=== PATIENT | female | born 1995 | race Caucasian/White ===

== ENCOUNTER 2018-12-29 13:04 | Inpatient (IN) ==
[2018-12-29] MEDS ORDERED: NS 1,000 ML IV ONE ×2 (14:00→16:46)
[2018-12-29] MEDS ORDERED: ZOFRAN IV ONE (14:00)
[2018-12-29 14:14] LABS: BASO# 0.01 X1000 (0.0-0.2); BASO% 0.1 % (0.0-0.8); EOS# 0.15 X1000 (0.0-0.7); EOS% 0.9 % (0.0-10.0); HEMATOCRIT 39.8 % (37.0-47.0); HEMOGLOBIN 13.8 g/dL (12.0-16.0); LYMPH# 1.37 X1000 (1.2-3.4); LYMPH% 7.9 % (20.5-51.1); MCH 31.2 PG (27-31); MCHC 34.7 g/dL (33-37); MCV 89.8 FL (81-99); MONO% 3.5 % (1.7-9.3); MPV 10.2 FL (7.4-10.4); NEUT# 15.21 X1000 (1.4-6.5); NEUT% 87.6 % (42.2-75.2); PLT 184 X1000 (130-400); RBC 4.43 XMIL (4.2-5.4); RDW 12.5 % (11.5-14.5); WBC 17.34 X1000 (4.8-10.8)
[2018-12-29] MEDS ORDERED: ZOSYN 3.375 GM in NS 50 ML IV ONE ×2 (14:15→16:46)
[2018-12-29 14:26] LABS: URINE SOURCE CLEAN CATCH
[2018-12-29 14:27] LABS: BANDS 4 % (0-1); EOS 2 % (1-10); LYMPHS 4 % (21-51); MONO 4 % (1-9); SEGS 86 % (42-75)
[2018-12-29 14:29] LABS: BILIRUBIN URINE NEGATIVE (NEGATIVE); BLOOD URINE MODERATE (NEGATIVE); COLOR YELLOW; GLUCOSE URINE NEGATIVE (NEGATIVE); KETONE URINE 60 mg/dL (NEGATIVE); LEUKOCYTES URINE SMALL (NEGATIVE); NITRITE URINE NEGATIVE (NEGATIVE); PH URINE 5.5; PROTEIN URINE 100 mg/dL (NEGATIVE); SP GRAVITY URINE 1.026; TURBIDITY URINE HAZY (CLEAR); UROBILINOGEN URINE NORMAL (NORMAL)
--- NOTE | 2018-12-29 14:29 | PROVIDER DOCUMENTATION ---
HPI-Abdominal Pain/GI Problem - General Chief Complaint: Abdominal Pain Stated Complaint: ABDOMINAL PAIN/ VOMITING Time Seen by Provider: 12/29/18 13:39 Source: patient Allergies/Adverse Reactions: Patient Allergies Allergy/AdvReac Type Severity Reaction Status Date / Time No Known Allergies Allergy Unverified 09/23/15 23:30 Home Medications: Home Medication List Medication Instructions Recorded Confirmed Last Taken Type NK [No Home Medications] 12/29/18 12/29/18 Unknown History - History of Present Illness-ABD Nature of Presenting Problems: 23yof present to ER with c/o RLQ abd pain onset 2 days ago. Pt was seen at an [facility]gent [facility] and referred here due to WBC 20. Pt reports fever of 101 yesterday. Pt also c/o nvd. Abdominal Pain Onset Location: reports: generalized abdomen Pain Radiation: reports: no radiation Quality of Pain: reports: sharp, stabbing Onset/Duration: reports: 2 days ago Timing: reports: still present Associated Symptoms: reports: diarrhea, fever/chills, nausea, vomiting. denies: chest pain, constipation, diaphoresis, genitourinary problems, shortness of breath Review of Systems - Adult - REVIEW OF SYSTEMS - ADULT Constitutional: reports: see HPI, chills, fever Eyes: reports: no symptoms reported Ears, Nose, Mouth & Throat: reports: no symptoms reported Cardiovascular: reports: no symptoms reported. denies: chest pain Respiratory: reports: no symptoms reported. denies: shortness of breath Gastrointestinal: reports: see HPI, abdominal pain, diarrhea, nausea, vomiting Genitourinary: reports: no symptoms reported. denies: dysuria, frequency, hematuria, urgency Musculoskeletal: reports: no symptoms reported. denies: back pain Integumentary: reports: no symptoms reported Neurological: reports: no symptoms reported. denies: dizziness/vertigo Psychiatric: reports: no symptoms reported Endocrine: reports: no symptoms reported Hematologic/Lymphatic: reports: no symptoms reported Allergic/Immunologic: reports: no symptoms reported All Other Systems: Reviewed and Negative Past History - Adult - PAST MEDICAL HISTORY-ADULT Review of Records: reports: Old Records Reviewed, Nursing Assessment Review, Medications Reviewed, Social history reviewed & non-contributory. Major Childhood Illnesses: reports: denies history Cardiovascular: reports: HTN (during ) Respiratory: reports: denies history Gastrointestinal: reports: denies history Obstetrical/Gynecological: reports: denies history Genitourinary: reports: denies history Musculoskeletal: reports: denies history Neurological: reports: denies history Endocrine/Immune: reports: denies history Other Conditions: reports: denies history - IMMUNIZATION STATUS Childhood Immunizations: See Nurse Assessment Flu Vaccine: See Nurse Assessment - FAMILY HISTORY Family History: reviewed, not pertinent Physical Exam-General - PHYSICAL EXAM-ADULT Initial Vital Signs Reviewed: Yes - CONSTITUTIONAL General Appearance: alert, mild distress - EYES Eyes: pink conjunctivae - HEAD, EARS, NOSE, MOUTH & THROAT HENMT: moist mucous membranes, normal ENT inspection. negative: angioedema - NECK Neck: full range of motion, supple, normal inspection. negative: lymphadenopathy - RESPIRATORY Respiratory: lungs clear, normal breath sounds, no respiratory distress, no accessory muscle use - CARDIOVASCULAR Cardiovascular: tachycardia - GASTROINTESTINAL (ABDOMEN) Abdominal Exam: normal bowel sounds, guarding, tenderness (diffuse). negative: distended, rigid, rebound - LYMPHATIC Lymphatic: no adenopathy - MUSCULOSKELETAL Back Exam: normal inspection, no CVA tenderness, no vertebral tenderness Extremity: normal range of motion, normal gait, normal inspection - SKIN Integumentary: normal color, warm/dry. negative: rash - NEUROLOGIC Neurologic: grossly normal, no motor/sensory deficits - PSYCHIATRIC Psych/Mental Status: normal mood/affect, normal thought content, normal thought process, oriented x 3 Progress - PLAN OF CARE/RESULTS Progress/Plan/Lab Results: Vital Signs - 8 hr 12/29/18 13:32 Temperature 99.7 F H Pulse Rate 124 H Respiratory Rate 20 Blood Pressure 130/79 O2 Sat by Pulse Oximetry 98 Laboratory Results - last 24 hr 12/29/18 13:49 WBC 17.34 H RBC 4.43 Hgb 13.8 Hct 39.8 MCV 89.8 MCH 31.2 H MCHC 34.7 RDW Std Deviation 12.5 Plt Count 184 MPV 10.2 Neut % (Auto) 87.6 H Lymph % (Auto) 7.9 L Bertie % (Auto) 3.5 Eos % (Auto) 0.9 Baso % (Auto) 0.1 Neut # (Auto) 15.21 H Lymph # (Auto) 1.37 Bertie # (Auto) 0.60 H Eos # (Auto) 0.15 Baso # (Auto) 0.01 Orders Category Date Time Status ED: Urine Bedside ORDERED Care 12/29/18 13:36 Active ED: Urine Bedside ORDERED Care 12/29/18 13:40 Active NPO Diet 12/29/18 13:36 Completed NPO Diet 12/29/18 13:[address] ABD/PELVIS W/IV CONT ONLY [CT] Stat Exams 12/29/18 13:40 Ordered BLOOD CULTURE [BLDCUL] Stat Lab 12/29/18 14:15 Uncollected CBC WITH DIFF [HEME] Stat Lab 12/29/18 13:49 Results COMPREHENSIVE METABOLIC PANEL [CHEM] Stat Lab 12/29/18 13:49 Received LACTATE, PLASMA [CHEM] Stat Lab 12/29/18 14:15 Uncollected LIPASE [CHEM] Stat Lab 12/29/18 13:49 Received URINALYSIS W/POSS RFLX CULT [URINALYSIS] Stat Lab 12/29/18 14:22 Ordered 0.9% Sodium Chloride Inj [Ns] 1,000 ml Med 12/29/18 14:00 Active IV 999 mls/hr Ondansetron [Zofran] Med 12/29/18 14:00 Discontinued 4 mg IV NOW ONE Piperacillin/Tazobactam [Zosyn] 3.375 gm Med 12/29/18 14:15 Active 0.9% Sodium Chloride Inj [Ns] 50 ml IV NOW Abd Pain/OB <20 weeks Stat Oth 12/29/18 13:35 Ordered Result Diagrams: 12/29/18 13:49 12/29/18 13:49 - REASSESSMENT Reassessment #1 Time Reassessed: 16:56 (Dr Duarte assessed pt in ER. Plans to take pt to surgery. Pt to remain NPO) - CT/MRI 1 CT Study: Abdomen, Pelvis Impression: See EMR Report ( FINDINGS: No calcified gallstones or adjacent inflammation. There is mild fatty infiltration of the liver. Normal spleen, pancreas, adrenal glands, and kidneys. No hydronephrosis. Normal aorta. Mild lower abdominal and right lower quadrant mesenteric inflammation. Trace fluid in the right paracolic gutter. The appendix measures 7 mm in diameter. The mesenteric inflammation and fluid is separate from the appendix. No abscess. No free air. Urinary bladder is only mildly distended. There are small bilateral ovarian cysts. Normal uterus. IMPRESSION: Nonspecific lower abdominal and right lower quadrant mesenteric inflammation with a small amount of free fluid that appears to be separate from the appendix. This exam was performed using automated exposure control, adjustment of mA or kV according to patient size, and/or use of iterative reconstruction technique. Electronically signed by Josh David 12/29/2018 3:47 PM) - CONSULTS/PCP/HOSPITALIST Notification #1 *Consult/PCP/Hospitalist*: Dr Duarte Time Discussed: 16:20 (discussed CT report and pt's elevated WBC, fever, and RLQ abd tenderness. States he will come examine pt. Requests pt be placed in room with stretcher. Charge nurse made aware.) Consult Disposition: Will see in ED Departure - Departure Date of Disposition Decision: 12/29/18 Time of Disposition Decision: 16:57 DIAGNOSIS: Appendicitis Qualifiers: Appendicitis type: acute appendicitis Acute appendicitis type: unspecified acute appendicitis type Qualified Code(s): K35.80 - Unspecified acute appendicitis Disposition: ADMITTED INPATIENT 09 Certified Medical Emergency: Emergent Condition: Fair Referrals and Follow-Ups: None,PCP [Primary Care Provider] - - Critical Care Note This patient required my direct & personal management of CC.: No Attestation - Physician/ DL Attestation Patient care was provided by Advanced Practice Provider:: Yes Advanced Practice Provider:: Nehal Jimenez Advanced Practice Provider documentation review:: The Mid-level provider documentation, treatment plan and medical decision making was reviewed by the physician who agrees with all treatment and medical decision making by the MLP. The physician spent face to face time with patient:: No Advanced Practice Provider documentation review:: Supervising physician onsite and consulted in the evaluation and care of this patient. The physician did not have a face to face encounter with the patient.
[2018-12-29 14:34] LABS: AGAP 17; ALB/GLOB RATIO 0.8; ALBUMIN 3.9 g/dL (3.5-5.0); ALKALINE PHOSPHATASE 120 U/L (32-104); BUN 12 mg/dL (8-22); CALCIUM 9.7 mg/dL (8.8-10.2); CHLORIDE 96 mmol/L (98-107); COSMO 271; ESTIMATED GFR > 60; GLUCOSE 114 mg/dL (70-104); GOT 16 U/L (10-30); GPT 16 U/L (10-36); LIPASE 12 U/L (13-60); POTASSIUM 3.3 mmol/L (3.5-5.1); SODIUM 135 mmol/L (136-145); TCO2 22 mmol/L (25-35); TOTAL BILIRUBIN 0.48 mg/dL (0.20-1.00); TOTAL PROTEIN 8.6 g/dL (6.3-8.3)
[2018-12-29 14:59] LABS: UR EPITHELIAL CELLS >10 /HPF (<10); URINE BACTERIA 1+ /HPF; URINE RBC <10 /HPF (<10); URINE WBC 20-40 /HPF (<10)
[2018-12-29 15:33] LABS: URINE CRYSTALS NONE SEEN
--- NOTE | 2018-12-29 15:49 | Diag Imaging Result Doc PS360 ---
EXAM: CT ABD/PELVIS W/IV CONT ONLY HISTORY: RLQ abd pain, appendicitis TECHNIQUE: CT abdomen and pelvis with intravenous contrast. The exam is compromised without oral contrast. COMPARISON: None. FINDINGS: No calcified gallstones or adjacent inflammation. There is mild fatty infiltration of the liver. Normal spleen, pancreas, adrenal glands, and kidneys. No hydronephrosis. Normal aorta. Mild lower abdominal and right lower quadrant mesenteric inflammation. Trace fluid in the right paracolic gutter. The appendix measures 7 mm in diameter. The mesenteric inflammation and fluid is separate from the appendix. No abscess. No free air. Urinary bladder is only mildly distended. There are small bilateral ovarian cysts. Normal uterus. IMPRESSION: Nonspecific lower abdominal and right lower quadrant mesenteric inflammation with a small amount of free fluid that appears to be separate from the appendix. This exam was performed using automated exposure control, adjustment of mA or kV according to patient size, and/or use of iterative reconstruction technique. Electronically signed by Josh David 12/29/2018 3:47 PM
[2018-12-29] MEDS ORDERED: MORPHINE IV ONE (16:46)
[2018-12-29] MEDS ORDERED: PHENERGAN IV PRN (17:06)
[2018-12-29] MEDS ORDERED: SODIUM CHLORIDE 0.9% INJ PRN (17:15)
[2018-12-29] MEDS: MORPHINE IV PRN (17:34)
[2018-12-29] MEDS ORDERED: SENSORCAINE 0.25%/EPI 1:200,000 ONE (19:37)
[2018-12-29] MEDS ORDERED: LR 1,000 ML ONE (19:37)
--- NOTE | 2018-12-29 19:38 | HISTORY AND PHYSICAL ---
HISTORY OF PRESENT ILLNESS: Ms. Maria Teresa Weeks is a 23-year-old white female who presented to our emergency department with a 4 to 5 day history of abdominal pain which was localized to her lower abdomen, mostly right lower quadrant. She has had some nausea and also diarrhea. She presented to the emergency department because of these ongoing symptoms. PAST MEDICAL HISTORY: She has 2 children. Otherwise is healthy. PAST SURGICAL HISTORY: No previous surgery. MEDICATIONS: None. ALLERGIES: None. SOCIAL HISTORY: She is a smoker but had not smoked over the last several days. REVIEW OF SYSTEMS: A 14-point review of systems was performed and was, essentially negative except for the history of present illness. PHYSICAL EXAMINATION: On exam, Ms. Maria Teresa Weeks is in no acute distress. She does have lower abdominal pain. I think it is most tender in her right lower quadrant. She has no previous scar. No hernia. There is no palpable mass. She did not have costovertebral tenderness. Rectal and vaginal exams were not performed. She does have palpable peripheral pulses. No peripheral edema. Neurologically she is alert and oriented x3 and appropriate. IMAGING: I reviewed the CT scan with our radiologist, Dr. Josh David. She does have some inflammation in her mid abdomen, but we were not sure if there was inflammation involving the appendix. The appendix was slightly enlarged. We felt this could be enteritis instead of appendicitis. She does have some ovarian cysts, but no significant free fluid in the pelvis. Her white blood cell count is elevated. IMPRESSION: 1. Inflammation and pain with elevated white blood cell count, lower abdomen localizing to her right lower quadrant. 2. Possible enteritis. 3. Possible appendicitis. PLAN: We will admit her to the hospital. Give her IV fluids and IV Zosyn. I discussed taking her appendix out and its risks including bleeding, infection, injury to intra-abdominal contents for trocar placement, conversion of laparoscopic to open appendectomy, removal of a normal appendix, possible ruptured appendix requiring prolonged hospitalization and drains. I have an emergent surgery to do right now and I will re-evaluate her as she gets settled in the emergency department for laparoscopic appendectomy. cc: Terese Duarte MD
[2018-12-29] MEDS ORDERED: HURRICAINE SPRAY (DOSE) ONE (19:41)
[2018-12-29] MEDS ORDERED: DIPRIVAN 1% ONE (19:46)
[2018-12-29] MEDS ORDERED: ROBINUL ONE (19:46)
[2018-12-29] MEDS ORDERED: XYLOCAINE-MPF 2% ONE ×2 (19:46→21:00)
[2018-12-29] MEDS ORDERED: FENTANYL ONE (19:47)
[2018-12-29] MEDS ORDERED: ZEMURON ONE (19:49)
[2018-12-29] MEDS ORDERED: QUELICIN (DOSE) ONE (19:49)
[2018-12-29] MEDS ORDERED: DILAUDID ONE (20:12)
[2018-12-29] MEDS ORDERED: ZOFRAN ONE (20:16)
[2018-12-29] MEDS ORDERED: DECADRON ONE (20:16)
[2018-12-29] MEDS ORDERED: TORADOL ONE (20:16)
[2018-12-29] MEDS: ZOSYN 3.375 GM in NS 50 ML IV SCH (20:50)
--- NOTE | 2018-12-29 21:19 | OPERATIVE NOTE ---
PROCEDURE DATE: 12/29/2018 PREOPERATIVE DIAGNOSIS: Acute appendicitis. POSTOPERATIVE DIAGNOSIS: 1. Acute appendicitis. 2. Enteritis. PRINCIPAL PROCEDURE: Laparoscopic appendectomy. SURGEON: Terese Duarte MD. SALES DEVELOPMENT REPRESENTATIVE: walker Perryfinancial services technician. ANESTHESIA: General in addition to local anesthetic. ESTIMATED BLOOD LOSS: 50 mL. DRAINS: None. INDICATIONS: Maria Teresa Weeks is a 23-year-old, overweight white female who presented to our emergency department with a several day history of abdominal pain, which was localized really to her right lower quadrant. A CT scan was performed which showed inflammation in the area of the right lower quadrant. It was questionable whether she had acute appendicitis or enteritis. We decided on proceeding with appendectomy. FINDINGS: She had exudate involving her distal small bowel and the bowel within the pelvis, and the loops of bowel were adhered to each other because of this exudate, and the omentum was stuck to the surface of the small bowel. We looked to the appendix. It could be acutely inflamed secondary to enteritis, but it was not ruptured, and we removed it laparoscopically. We took time to thoroughly irrigate out the lower abdomen. There was no inflammation in the upper abdomen. We tried to remove most of the exudate using suction and we irrigated the area well. We felt that we will continue her on IV antibiotics. The etiology of her exudate or infection and elevated white blood cell count was still in question after surgery. PROCEDURE: The patient was brought to the operating room, placed supine, received general anesthesia, and was intubated. A Malagon catheter tube was placed. Her abdomen was prepped and draped into a sterile field. She had previous two C-sections. We began the procedure by making a small curvilinear incision below the umbilicus using a 15 blade scalpel. Veress needle was introduced through this incision into the abdomen. Pneumoperitoneum was established. The Veress needle was removed and we used step trocars. I placed an 11 mm step trocar through this incision into the abdomen. The camera was placed through this port, and the abdomen was explored for injury; there was none. The liver appeared to be normal. I placed a 12 mm step trocar under direct vision in the suprapubic area through the previous scar, midline, and then I placed a 5 mm step trocar in the right lower quadrant of the abdomen. The camera was at the umbilicus and I used a grasper and a dissector to dissect out the appendix. I used a gold load Endo-ALICIA to come across the appendiceal mesentery. I used a reload of this ALICIA to come across the base of the appendix, and I removed the appendix using an Endobag through our 12 mm port site. I placed the trocar back through this site and I took time to dissect all the interloop adhesions, and tried to suck out as much exudate as possible off this lower abdominal bowel. I removed some fluid from the pelvis. The uterus appeared to be normal. The right ovary appeared to be normal. There was not any obvious salpingitis, tubo-ovarian abscess, or other infection in the pelvis. We felt this could be related to an enteritis. She had some diarrhea preop. At this point, after we were happy with the irrigation and it was removed with suction, we removed all trocars and pneumoperitoneum was allowed to dissipate. I used [id number] 2-0 Vicryl stitches to reapproximate the fascia in my midline incisions. I closed all skin with 4-0 Monocryl subcuticular stitches. We will remove the Malagon. She will go to the recovery room. We will continue IV antibiotics and she will be admitted. cc: Terese Duarte MD
[2018-12-29 21:20] LABS: URINE SOURCE CATH
[2018-12-29 21:22] LABS: UR EPITHELIAL CELLS >10 /HPF (<10); URINE BACTERIA NEGATIVE /HPF; URINE RBC <10 /HPF (<10); URINE WBC <10 /HPF (<10)
[2018-12-29 21:23] LABS: BILIRUBIN URINE NEGATIVE (NEGATIVE); BLOOD URINE TRACE (NEGATIVE); COLOR YELLOW; GLUCOSE URINE NEGATIVE (NEGATIVE); KETONE URINE 80 mg/dL (NEGATIVE); LEUKOCYTES URINE NEGATIVE (NEGATIVE); NITRITE URINE NEGATIVE (NEGATIVE); PROTEIN URINE 50 mg/dL (NEGATIVE); TURBIDITY URINE TURBID (CLEAR); UROBILINOGEN URINE NORMAL (NORMAL)
[2018-12-29 21:26] LABS: SP GRAVITY URINE > 1.039
[2018-12-29] MEDS ORDERED: D5 1/2 NS + KCL 20 MEQ 1,000 ML ONE (21:36)
[2018-12-30] MEDS: D5 1/2 NS + KCL 20 MEQ 1,000 ML IV SCH ×2 (00:41→16:05)
[2018-12-30] MEDS: ZOSYN 3.375 GM in NS 50 ML IV SCH ×4 (00:42→18:19)
[2018-12-30] MEDS: MORPHINE IV PRN (07:58)
[2018-12-30] MEDS: TYLENOL PO PRN ×2 (11:22→18:51)
[2018-12-30] MEDS: PERIDEX MT SCH ×2 (11:22→22:47)
--- NOTE | 2018-12-30 15:45 | PROGRESS NOTE ---
DATE: 12/30/2018 Ms. Maria Teresa Weeks is now postop day 1 from a laparoscopic appendectomy for acute appendicitis. When we explored her abdomen, she had exudate and adhesions between loops of small bowel down in her pelvis. She also had the greater omentum covering the small bowel. She had some free fluid in her pelvis and I wondered whether all this was secondary to appendicitis or enteritis. We irrigated out her lower abdomen. I did remove her appendix and we have kept her on IV antibiotics. Clinically, she states that she feels better today but she still has some abdominal discomfort. Her heart rate is 66, blood pressure 117/55, O2 saturation 99%. She is afebrile on IV Zosyn. Her white blood cell count on admission was 17 and we will recheck her white blood cell count. We will keep her hospitalized on IV antibiotics because of her intra-abdominal infection. We have given her clear liquids. We will advance this to a full liquid diet. We will stop her morphine. cc: Terese Duarte MD
[2018-12-30] MEDS: NORCO-10 PO PRN ×2 (16:03→22:47)
[2018-12-31] MEDS: ZOSYN 3.375 GM in NS 50 ML IV SCH ×2 (03:41→08:25)
[2018-12-31] MEDS: D5 1/2 NS + KCL 20 MEQ 1,000 ML IV SCH (05:00)
--- NOTE | 2018-12-31 06:20 | GENERAL SURGERY PROGRESS NOTE ---
DATE: 12/31/2018 SUBJECTIVE: The patient seems to be doing okay. She has been reporting less pain. OBJECTIVE: Vital Signs: The patient is currently afebrile. Her vital signs stable. General: No acute distress. Cardiovascular: Regular rate and rhythm. Lungs: Grossly clear. Abdomen: Soft, appropriately tender. No peritoneal signs. LABORATORY: Pending. ASSESSMENT/PLAN: A 23-year-old status post appendectomy. Postoperative state: At this time we will follow up with a.m. labs. If her white blood cell count seems to be trending down to normal, we will consider discharge. Otherwise, continue to monitor. I will advance her to a regular diet. cc: MD Terese Kowalski MD
[2018-12-31 06:45] LABS: BASO# 0.01 X1000 (0.0-0.2); BASO% 0.1 % (0.0-0.8); EOS# 0.21 X1000 (0.0-0.7); EOS% 2.4 % (0.0-10.0); HEMATOCRIT 31.4 % (37.0-47.0); HEMOGLOBIN 10.4 g/dL (12.0-16.0); LYMPH# 1.67 X1000 (1.2-3.4); LYMPH% 19.5 % (20.5-51.1); MCH 30.9 PG (27-31); MCHC 33.1 g/dL (33-37); MCV 93.2 FL (81-99); MONO# 0.51 X1000 (0.11-0.59); MONO% 5.9 % (1.7-9.3); MPV 10.6 FL (7.4-10.4); NEUT# 6.18 X1000 (1.4-6.5); NEUT% 72.1 % (42.2-75.2); PLT 157 X1000 (130-400); RBC 3.37 XMIL (4.2-5.4); RDW 12.5 % (11.5-14.5); WBC 8.58 X1000 (4.8-10.8)
[2018-12-31 07:14] LABS: AGAP 10; BUN 6 mg/dL (8-22); CALCIUM 8.1 mg/dL (8.8-10.2); CHLORIDE 104 mmol/L (98-107); COSMO 277; CREATININE 0.7 mg/dL (0.5-0.9); ESTIMATED GFR > 60; GLUCOSE 127 mg/dL (70-104); POTASSIUM 3.8 mmol/L (3.5-5.1); SODIUM 139 mmol/L (136-145); TCO2 25 mmol/L (25-35)
[2018-12-31 08:04] VITALS: BP 124/74
[2018-12-31] MEDS: PERIDEX MT SCH (08:25)
[2018-12-31] MEDS: NORCO-10 PO PRN (08:26)
== END 2018-12-31 10:26 | disposition home or self-care (01) | DRG 343 ==
LOC: ED 13:04 → EDIPHOLD 18:16 → 4N 21:32
PROVIDERS: ADMIT Surgery; ATTEND Surgery